=== PATIENT | male | born 1945 | race Caucasian/White ===

== ENCOUNTER 2024-08-19 12:48 | Emergency (ER) | payer MEDICARE, OTHER ==
[~2024-08-19] VITALS: Ht 180.3 cm; Wt 81.6 kg
[2024-08-19] VITALS (8 sets, daily range): BP systolic 122–160; BP diastolic 51–81
[2024-08-19] MEDS ORDERED: LIDOCAINE HCL 2 % JELLY TOP ONE (13:25)
[2024-08-19] MEDS ORDERED: LOPRESSOR25 M1 PO (14:27)
[2024-08-19] MEDS ORDERED: SIMVASTATIN40 MG PO (14:28)
[2024-08-19] MEDS ORDERED: PLAVIX75 MG PO (14:28)
== END 2024-08-19 16:25 | disposition home or self-care (01) ==
LOC: ED 12:48
DX: K59.00 Constipation, unspecified (principal); K64.4 Residual hemorrhoidal skin tags